=== PATIENT | female | born 1990 | race Caucasian/White ===

== ENCOUNTER 2017-02-13 19:14 | Emergency (ER) | payer MEDICAID ==
[2017-02-13 19:25] VITALS: RESP 16; TEMP 98.1
--- NOTE | 2017-02-13 19:36 | EDPHY ---
H & P Stated Complaint: trip and fall while hiking, R ankle L knee pain Time Seen by Provider: 02/13/17 19:27 HPI/ROS: CHIEF COMPLAINT: ANKLE AND KNEE PAIN HISTORY OF PRESENT ILLNESS: The patient is a 26-year-old female who was hiking and tripped and fell forward. She is complaining of right ankle pain and left knee pain. She has small abrasion to her left knee. No obvious swelling or deformity. She was able to ambulate. Brought here by EMS. She denies any significant past medical history. She denies any upper extremity head neck or back injuries. REVIEW OF SYSTEMS: Constitutional: denies: chills, fever, recent illness, recent injury EENTM: denies: blurred vision, double vision, nose congestion Respiratory: denies: cough, shortness of breath Cardiac: denies: chest pain, irregular heart rate, lightheadedness, palpitations Gastrointestinal/Abdominal: denies: abdominal pain, diarrhea, nausea, vomiting, blood streaked stools Genitourinary: denies: dysuria, frequency, hematuria, pain Musculoskeletal: See HPI Skin: denies: lesions, rash, jaundice, bruising Neurological: denies: headache, numbness, paresthesia, tingling, dizziness, weakness Hematologic/Lymphatic: denies: blood clots, easy bleeding, easy bruising Immunologic/allergic: denies: HIV/AIDS, transplant EXAM: GENERAL: Well-appearing, well-nourished and in no acute distress. HEAD: Atraumatic, normocephalic. EYES: Pupils equal round and reactive to light, extraocular movements intact, sclera anicteric, conjunctiva are normal. ENT: TMs normal, nares patent, oropharynx clear without exudates. Moist mucous membranes. NECK: Normal range of motion, supple without lymphadenopathy or JVD. LUNGS: Breath sounds clear to auscultation bilaterally and equal. No wheezes rales or rhonchi. HEART: Regular rate and rhythm without murmurs, rubs or gallops. ABDOMEN: Soft, nontender, normoactive bowel sounds. No guarding, no rebound. No masses appreciated. BACK: No CVA tenderness, no spinal tenderness, step-offs or deformities EXTREMITIES: Pain to right ankle, no swelling or deformity, no bony tenderness , left knee pain, mild abrasion, no deformity. Able to bear weight NEUROLOGICAL: Cranial nerves II through XII grossly intact. Normal speech, normal gait. 5/5 strength, normal movement in all extremities, normal sensation PSYCH: Normal mood, normal affect. SKIN: Warm, dry, normal turgor, no visible rashes or lesions. Source: Patient Exam Limitations: No limitations - Personal History LMP (Females 10-55): 15-21 Days Ago Current Tetanus/Diphtheria Vaccine: Yes Current Tetanus Diphtheria and Acellular Pertussis (TDAP): Yes - Medical/Surgical History Hx Asthma: Yes Hx Chronic Respiratory Disease: No Hx Diabetes: No Hx Cardiac Disease: No Hx Renal Disease: No Hx Cirrhosis: No Hx Alcoholism: Yes Hx HIV/AIDS: No Hx Splenectomy or Spleen Trauma: No Other PMH: asthma, alcoholism - Family History Significant Family History: No pertinent family hx - Social History Smoking Status: Former smoker Alcohol Use: Heavy Drug Use: None Constitutional: Initial Vital Signs Temperature (C) 36.7 C 02/13/17 19:17 Heart Rate 86 02/13/17 19:17 Respiratory Rate 16 02/13/17 19:17 Blood Pressure 114/79 02/13/17 19:17 O2 Sat (%) 98 02/13/17 19:17 O2 Delivery Mode Room Air Allergies/Adverse Reactions: acetaminophen [From Vicodin] Allergy (Verified 02/13/17 19:20) hydrocodone [From Vicodin] Allergy (Verified 02/13/17 19:20) tramadol Allergy (Verified 02/13/17 19:20) Home Medications: Medication Instructions Recorded Gabapentin 02/13/17 Seroquel Xr 02/13/17 Medical Decision Making - Diagnostics Imaging Results: Imaging Impressions Ankle X-Ray 02/13/17 19:23 Impression: 1. Lateral soft tissue swelling. 2. No definite ankle fracture. Knee X-Ray 02/13/17 19:23 Impression: No fracture of the left knee. Imaging: I viewed and interpreted images myself ED Course/Re-evaluation: We discussed the imaging results. The patient is relieved. I encouraged ambulation. We will wrapped with Kimani bandage. She declines further workup or testing at this time. We discussed indications for returning. Differential Diagnosis: Partial list of the Differential diagnosis considered include but were not limited to; fracture, dislocation, sprain, contusion, abrasion and although unlikely based on the history and physical exam, I also considered back injury, head injury, upper extremity. I discussed these differential diagnoses and the plan with the patient as well as the usual and expected course. The patient understands that the diagnosis is provisional and that in medicine we are not always correct and that further workup is often warranted. Usual and customary warnings were given. All of the patient's questions were answered. The patient was instructed to return to the emergency department should the symptoms at all worsen or return, otherwise to followup with the physician as we discussed. Departure - Departure Disposition: Home, Routine, Self-Care Clinical Impression: Knee pain Qualifiers: Laterality: left Chronicity: acute Qualified Code(s): M25.562 - Pain in left knee Ankle pain, right Qualifiers: Chronicity: acute Qualified Code(s): M25.571 - Pain in right ankle and joints of right foot Condition: Fair Instructions: Ankle Sprain (ED), Knee Pain (ED) Referrals: Patient,NotPresent [Unknown] - As per Instructions Donnie Keith MD [Medical Doctor] - As per Instructions
[2017-02-13 20:26] VITALS: BP 106/72; PULSE 78; O2SAT 94
== END 2017-02-13 20:26 | disposition home or self-care (01) ==
DX: M25.562 Pain in left knee (principal); M25.571 Pain in right ankle and joints of right foot; J45.909 Unspecified asthma, uncomplicated; Z87.891 Personal history of nicotine dependence